=== PATIENT | male | born 1980 | race Caucasian/White ===

== ENCOUNTER 2017-01-03 17:19 | Emergency (ER) | payer BC ==
[2017-01-03] MEDS ORDERED: TRAMADOL HYDROC50 MG PO (17:56)
[2017-01-03] MEDS ORDERED: MOTRIN800 MG PO (17:56)
[2017-01-03 18:31] VITALS: BP 128/71
== END 2017-01-03 18:39 | disposition home or self-care (01) | DRG 605 ==
LOC: ED 17:19
DX: S90.31XA Contusion of right foot, initial encounter (principal); X50.1XXA Overexertion from prolonged static or awkward postures, initial encounter; Y93.02 Activity, running; Y92.832 Beach as the place of occurrence of the external cause

== ENCOUNTER 2022-02-15 19:39 | Emergency (ER) | payer OTHER ==
[~2022-02-15] VITALS: Ht 165.1 cm; Wt 64.0 kg
[~2022-02-15 19:39] MED LIST: MOTRIN800 MG PO; TRAMADOL HYDROC50 MG PO
[2022-02-15] MEDS ORDERED: CITALOPRAM10 M1 PO (21:29)
[2022-02-15] MEDS ORDERED: AMOXICILLIN500 MG PO (22:27)
[2022-02-15 22:48] VITALS: BP 105/73
== END 2022-02-15 23:01 | disposition home or self-care (01) | DRG 605 ==
LOC: ED 19:39
PROC: 0HQEXZZ Repair Left Lower Arm Skin, External Approach (ICD-10-PCS; principal; 2022-02-15)
DX: S61.512A Laceration without foreign body of left wrist, initial encounter (principal); W26.8XXA Contact with other sharp object(s), not elsewhere classified, initial encounter; Y93.89 Activity, other specified; Y92.009 Unspecified place in unspecified non-institutional (private) residence as the place of occurrence of the external cause; F32.A Depression, unspecified